=== PATIENT | male | born 1940 | race Caucasian/White ===

== ENCOUNTER 2016-12-03 06:24 | Day surgery (SDC) | payer MEDICARE, BC ==
[2016-12-03] MEDS ORDERED: Lactated Ringers 1,000 ML IV SCH (07:00)
[2016-12-03] MEDS ORDERED: Midazolam 1 MG/ML 2 ML SDV ONE (07:28)
[2016-12-03] MEDS ORDERED: Propofol 200 MG/20 ML SDV ONE ×2 (07:28→07:51)
[2016-12-03] MEDS ORDERED: fentaNYL 100 MCG/2 ML SDV ONE ×2 (07:28→07:53)
[2016-12-03 09:59] VITALS: BP 125/79
--- NOTE | 2016-12-03 13:12 | OR ---
DATE OF PROCEDURE: 12/03/2016 PREOPERATIVE DIAGNOSES: Gastroesophageal reflux disease, use of a proton pump inhibitor chronically, and history of colon polyps. POSTOPERATIVE DIAGNOSES: Gastroesophageal reflux disease, hiatal hernia, gastric polyps, use of a proton pump inhibitor chronically, diverticulosis, small colon polyp 40 cm from the anal verge, and history of colon polyps. PROCEDURE: Esophagogastroduodenoscopy with antral biopsies for CLOtest and sent for Pathology to look for Helicobacter pylori, biopsy resection of several small gastric polyps, biopsy of gastroesophageal junction, colonoscopy to the cecum with biopsy resection of the small polyp 40 cm from the anal verge. SURGEON: Hayden Diaz MD ANESTHESIA: IV anesthesia with monitored anesthesia care. INDICATION: This 76-year-old white male is referred for upper and lower endoscopy. Indication for upper endoscopy is a history of gastroesophageal reflux disease. He says he does fine as long as he is taking a proton pump inhibitor. Indication for the colonoscopy is a history of colon polyps. His last colonoscopic exam he says was done five years ago. I counseled him for the procedures including risks and alternatives, and he gave his informed consent to proceed. PROCEDURE IN DETAIL: The patient was placed in the left lateral decubitus position. IV anesthesia was administered by the Anesthesia Service. Time-out was held. The flexible video Olympus upper endoscope was passed through his mouth, down his esophagus, and into his stomach. The scope was then easily passed through the pylorus into the duodenum, reaching the third portion. The scope was then slowly withdrawn, examining the mucosa throughout. The duodenal mucosa appeared unremarkable. The scope was brought up through the pylorus. The antrum appeared unremarkable. However, because of the chronic use of a proton pump inhibitor, we did obtain antral biopsies for CLOtest and for Pathology to look for Helicobacter pylori. The scope was retroflexed, we could see a hiatal hernia and also multiple small gastric polyps. 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 We did remove 5 of the largest ones. The scope was then brought to the GE junction. We transversed about a 2 cm hiatal hernia to do that. The GE junction was abnormal. The Z-line was not straight and there were a few small islands of gastric mucosa proximal to the Z-line. We obtained multiple, totally six, biopsies of the gastroesophageal junction. The scope was then brought proximally up through the remainder of the esophagus, which otherwise appeared unremarkable and it was removed. Next, a rectal exam was performed, which was unremarkable. The flexible video Olympus colonoscope was introduced through his anus, up his rectum, and out of his colon all way to the cecum. En route, we saw multiple left-sided diverticula. There was no bleeding nor inflammation associated with any of them. Once the cecum was reached, the scope was slowly withdrawn examining the mucosa throughout. No additional mucosal abnormalities were noted until we reached 40 cm from the anal verge. Here a small polyp was seen, which was removed with two bites of the biopsy forceps. The scope was brought back into the rectum, where it was retroflexed. The distal rectum was unremarkable. The scope was straightened and removed. He tolerated the procedure well. Hayden Diaz MD /[id number] MTDD
== END 2016-12-03 10:19 | disposition home or self-care (01) ==
LOC: JP.SDS 06:24
PROVIDERS: ATTEND Surgery
DX: Z12.11 Encounter for screening for malignant neoplasm of colon (principal); Z86.010 Personal history of colon polyps; K29.50 Unspecified chronic gastritis without bleeding; D12.6 Benign neoplasm of colon, unspecified; K31.7 Polyp of stomach and duodenum; K31.89 Other diseases of stomach and duodenum; K57.30 Diverticulosis of large intestine without perforation or abscess without bleeding; K21.9 Gastro-esophageal reflux disease without esophagitis; K44.9 Diaphragmatic hernia without obstruction or gangrene; Z90.49 Acquired absence of other specified parts of digestive tract; Z98.890 Other specified postprocedural states
CPT/HCPCS: 43239; 45380; 87081; J2250; J2704; J3010; J7120; 88305

== ENCOUNTER → 2018-10-04 | Outpatient (CLI) | payer MEDICARE, BC ==
[2018-10-04] MEDS: Iopamidol 612 MG/ML 150 ML Bottle IV SCH (09:22)
[2018-10-04] MEDS: Sodium Chloride 0.9% 10 ML Syringe FLUSH ONE (09:23)
--- NOTE | 2018-10-05 15:42 | CRLCT ---
INDICATION: Neck mass. TECHNIQUE: CT images were obtained the neck following administration of intravenous contrast. COMPARISON: None. FINDINGS: Predominantly cystic, peripherally enhancing lesion within the superficial lobe of the right parotid gland measures 3.4 x 2.5 x 2.1 cm (CC/AP/TR). The lesion demonstrates thin hyperattenuating/enhancing component caudally, potentially representing soft tissue, as well as a thin internal septation. The lesion abuts and mildly deforms the inter margin of the sternocleidomastoid muscle. Perilesional stranding involving the subcutaneous tissues of the right face associated with thickening of the right platysma. Mild intraglandular ductal prominence cephalad to the lesion. No stones along the course of Stensen`s or Eduardo`s ducts. The nasopharynx, oropharynx, hypopharynx, and larynx are widely patent and without enhancing lesions. No enhancing lesions or calcifications within the parotid or the left parotid or submandibular glands. Asymmetric prominence of right level II and V lymph nodes without pathologic enlargement. The thyroid gland is normal in size and demonstrates homogeneous enhancement. Atherosclerotic calcifications at the carotid bifurcations. The visualized paranasal sinuses and mastoid air cells are clear. Multilevel cervical spondylosis. The visualized lungs are notable for mild dependent atelectasis. IMPRESSION: 1. Predominantly cystic 3.3 cm lesion within the superficial lobe of the right parotid gland. Perilesional stranding is visualized in the subcutaneous soft tissues of the right face, as well as within the right parapharyngeal and right carotid spaces. Differential considerations include parotid abscess, infected Warthin tumor, or parotid malignancy. Direct tissue sampling is recommended for further evaluation. 2. Asymmetric prominence of right level II and V lymph nodes without pathologic enlargement. Discussed above findings with Dr. Llanes around 1525 hrs on 10/05/2018. Please note that all CT scans at this facility use dose modulation, iterative reconstruction, and/or weight-based dosing when appropriate to reduce radiation dose to as low as reasonably achievable. Dictated by Poli Vazquez MD @ Oct 05 2018 3:09PM Signed by Dr. Poli Vazquez @ Oct 05 2018 3:40PM
== END | disposition home or self-care (01) ==
LOC: JP.CT 07:54
PROVIDERS: ATTEND Family Medicine
DX: R22.1 Localized swelling, mass and lump, neck (principal); K11.8 Other diseases of salivary glands
CPT/HCPCS: 36415; 70491; 82565; J7030; J7050

== ENCOUNTER 2019-07-03 09:08 | Day surgery (SDC) | payer MEDICARE, BC ==
[2019-07-03] MEDS ORDERED: Sodium Chloride 0.9% 1,000 ML IV SCH (09:45)
[2019-07-03] MEDS ORDERED: fentaNYL 100 MCG/2 ML SDV ONE (10:15)
[2019-07-03] MEDS ORDERED: Propofol 200 MG/20 ML SDV ONE (10:15)
[2019-07-03 11:44] VITALS: BP 141/93; PULSE 68
--- NOTE | 2019-07-03 14:39 | PROC ---
DATE OF PROCEDURE: 07/03/2019 SURGEON: Lj Page MD PROCEDURE: Colonoscopy. PREPROCEDURE DIAGNOSIS: History of colon polyps. POSTPROCEDURE DIAGNOSES: 1. History of colon polyps. 2. Three small polyps removed with biopsy forceps. 3. Diverticulosis. Risks and goals of procedure reviewed with the patient, who gave informed consent to proceed. He was brought back to the endoscopy room. Sedation monitoring provided by Gillianmichael from the Anesthesia Service. A time-out was held to confirm the right patient, right side, right procedure, as well as to review any potential concerns, of which there were none. He was placed in a left lateral decubitus position. After adequate sedation was achieved, digital rectal exam was performed which was unremarkable. Following this, a flexible colonoscope was placed and advanced out through the colon to the cecum. Cecum was identified by the ileocecal valve and appendiceal orifice. The scope was then slowly withdrawn through the length of the colon to the rectum, where it was retroflexed, straightened, and removed. There was a 0.2 cm polyp noted in the distal transverse colon that was removed using biopsy forceps. There was another 0.2 cm polyp in the descending colon, removed using biopsy forceps, and a third 0.2 cm polyp in the sigmoid colon also removed using biopsy forceps. He was noted to have fairly extensive diverticulosis with diverticula noted in the descending, transverse, ascending, and sigmoid colon. No other mucosal polyps, masses, or lesions were seen. The procedure was, otherwise, completed without complication. He will be monitored in PAR and outpatient area until fully recovered from IV sedation. Pathologic review of the biopsy specimen is pending at this time. Lj Page MD /[id number]
--- NOTE | 2019-07-11 08:00 | LETTER ---
07/10/2019 Mr. Leonor Castaneda [id number] [place] [address] RE: LEONOR CASTANEDA : 1940 Dear Mr. Castaneda: This letter concerns pathology results from the polyps removed at the time of your colonoscopy last week. Polyps were found to be tubular adenomas. These are benign or noncancerous polyps, but are the type that over several years can potentially develop into a colon cancer. The third polyp was entirely benign and carries no increased risk. Because of the types of polyps and number found, I would recommend that you have a followup colonoscopy in 5 years. If you have any questions concerning this result or recommendation, please feel free to contact me. Sincerely, /[id number]
== END 2019-07-03 11:50 | disposition home or self-care (01) ==
LOC: JP.SDS 09:08
PROVIDERS: ATTEND Hospitalist
DX: Z12.11 Encounter for screening for malignant neoplasm of colon (principal); K57.30 Diverticulosis of large intestine without perforation or abscess without bleeding; K21.9 Gastro-esophageal reflux disease without esophagitis; Z86.010 Personal history of colon polyps; Z88.0 Allergy status to penicillin
CPT/HCPCS: G0121; J2704; J3010; J7030; 45380; 88305

== ENCOUNTER 2022-09-07 07:51 | Day surgery (SDC) | payer MEDICARE, BC ==
[2022-09-07] MEDS ORDERED: Lactated Ringers 1,000 ML IV SCH (08:45)
[2022-09-07] MEDS ORDERED: Propofol 200 MG/20 ML SDV ONE ×2 (09:41→10:26)
[2022-09-07] MEDS ORDERED: fentaNYL 50 MCG/ML SDV ONE (10:17)
[2022-09-07 11:47] VITALS: BP 135/83; PULSE 82
== END 2022-09-07 12:02 | disposition home or self-care (01) ==
LOC: JP.SDS 07:51
PROVIDERS: ATTEND Family Medicine
DX: Z12.11 Encounter for screening for malignant neoplasm of colon (principal); K29.50 Unspecified chronic gastritis without bleeding; K31.89 Other diseases of stomach and duodenum; K57.30 Diverticulosis of large intestine without perforation or abscess without bleeding; K44.9 Diaphragmatic hernia without obstruction or gangrene; K21.00 Gastro-esophageal reflux disease with esophagitis, without bleeding; Z86.010 Personal history of colon polyps; Z88.1 Allergy status to other antibiotic agents
CPT/HCPCS: 43239; G0105; J2704; J3010; J7120

== ENCOUNTER 2022-10-15 07:49 | Day surgery (SDC) | payer MEDICARE, BC ==
[~2022-10-15 07:49] MED LIST: Bupivacaine 0.5%/EPINEPHrine 1:200,000 50 ML MDV ONE; Dexamethasone 4 MG/ML SDV ONE; Glycopyrrolate 0.2 MG/ML 5 ML MDV ONE; Neostigmine Methylsulfate 1 MG/ML 5 ML Syringe ONE; Ondansetron 4 MG/2 ML SDV ONE; Propofol 200 MG/20 ML SDV ONE; Rocuronium 50 MG/5 ML Vial ONE; Succinylcholine 200 MG/10 ML MDV ONE; fentaNYL 250 MCG/5 ML SDV ONE
[2022-10-15 09:02] LABS: HEMATOCRIT 41.3 % (38.4-49.7); HEMOGLOBIN 14.1 g/dL (12.9-16.9); MEAN CORPUSCULAR HEMOGLOBIN 31.8 pg (31.6-35.5); MEAN CORPUSCULAR HGB CONC 34.1 g/dL (31.6-35.5); RED BLOOD CELL COUNT 4.44 M/uL (4.14-5.76); WHITE BLOOD CELL COUNT,WBC 3.9 K/uL (3.2-11.0)
[2022-10-15] MEDS ORDERED: Sodium Chloride 0.9% 1,000 ML IV SCH (09:15)
[2022-10-15] MEDS ORDERED: Clindamycin in 0.9 % Sod Chlor 600 MG in Premix Bag 1 BAG IV ONE ×2 (09:15)
[2022-10-15] MEDS ORDERED: metroNIDAZOLE/Normal Saline 500 MG in Premix Bag 1 BAG IV ONE (09:15)
[2022-10-15 09:23] LABS: ALANINE AMINOTRANSFERASE,ALT 19 U/L (12-78); ALBUMIN 3.5 g/dL (3.4-5.0); ALKALINE PHOSPHATASE 78 U/L (46-116); ASPARTATE AMNIOTRANSFERASE,AST 18 U/L (15-37); BILIRUBIN TOTAL 0.8 mg/dL (0.2-1.0); BLOOD UREA NITROGEN,BUN 18 mg/dL (7-18); CALCIUM 8.8 mg/dL (8.5-10.1); CARBON DIOXIDE,CO2 30 mmol/L (21-32); CHLORIDE,CL 105 mmol/L (100-108); EST CRCL DRUG DOSING (CG) 62.37 mL/min; ESTIMATED GFR 76 mL/min (>60); GLUCOSE RANDOM 97 mg/dL (74-106); POTASSIUM,K 5.3 mmol/L (3.6-5.2); PROTEIN TOTAL,TP 6.9 g/dL (6.4-8.2); SODIUM,NA 139 mmol/L (140-148)
[2022-10-15 09:24] LABS: ANION GAP 9.3 mmol/L (5.0-14.0)
[2022-10-15] MEDS ORDERED: fentaNYL 250 MCG/5 ML SDV ONE (10:14)
[2022-10-15] MEDS ORDERED: Lactated Ringers 1,000 ML ONE (12:00)
[2022-10-15 16:33] VITALS: BP 151/87; PULSE 96
== END 2022-10-15 16:51 | disposition home or self-care (01) ==
LOC: JP.SDS 07:49
PROVIDERS: ATTEND Surgery
DX: K40.90 Unilateral inguinal hernia, without obstruction or gangrene, not specified as recurrent (principal); K21.9 Gastro-esophageal reflux disease without esophagitis; Z88.0 Allergy status to penicillin
CPT/HCPCS: 36415; 49650; 51798; 80053; 85027; C1713; C1781; J0171; J0330; J1100; J2405; J2704; J2710; J2795; J3010; J3490; J7030; J7120

== ENCOUNTER 2022-10-15 21:41 | Emergency (ER) | payer MEDICARE, BC ==
[2022-10-15 22:15] VITALS: BP 176/90; PULSE 98
[2022-10-15] MEDS ORDERED: Tamsulosin 0.4 MG Cap.ER PO ONE (22:34)
== END 2022-10-15 22:55 | disposition home or self-care (01) ==
LOC: JP.ED 21:41
DX: R33.9 Retention of urine, unspecified (principal); M79.81 Nontraumatic hematoma of soft tissue; Z88.0 Allergy status to penicillin; Z86.16 Personal history of COVID-19
CPT/HCPCS: 51701; 99283; A9270

== ENCOUNTER 2022-10-16 11:42 | Emergency (ER) | payer MEDICARE, BC ==
[2022-10-16 15:01] VITALS: BP 139/78; PULSE 84
== END 2022-10-16 14:55 | disposition home or self-care (01) ==
LOC: JP.ED 11:42
DX: R33.9 Retention of urine, unspecified (principal); Z86.16 Personal history of COVID-19; Z88.0 Allergy status to penicillin; Z88.1 Allergy status to other antibiotic agents
CPT/HCPCS: 99283

== ENCOUNTER 2024-08-05 16:26 | Emergency (ER) | payer MEDICARE, BC ==
[2024-08-05 18:19] VITALS: BP 148/74; PULSE 67
[2024-08-05] MEDS: Ketorolac 15 MG/ML SDV IM ONE (18:28)
== END 2024-08-05 19:35 | disposition home or self-care (01) ==
LOC: JP.ED 16:26
DX: S43.402A Unspecified sprain of left shoulder joint, initial encounter (principal); Z88.0 Allergy status to penicillin; Z88.8 Allergy status to other drugs, medicaments and biological substances; Z79.899 Other long term (current) drug therapy; Z86.16 Personal history of COVID-19; Z90.49 Acquired absence of other specified parts of digestive tract; W00.9XXA Unspecified fall due to ice and snow, initial encounter
CPT/HCPCS: 73030-26-LT; 73030-LT; 96372; 99283; J1885